=== PATIENT | male | born 2000 | race Caucasian/White ===

== ENCOUNTER 2022-01-06 05:53 | Emergency (ER) | payer SELFPAY ==
[~2022-01-06] VITALS: Ht 170.2 cm; Wt 73.0 kg
[2022-01-06 07:46] VITALS: BP 132/90
[2022-01-06] MEDS: KETOROLAC 30MG/ML VIAL IV STA (07:46)
[2022-01-06] MEDS: MAGNESIUM/ALUMINUM HYDROXIDE/SIMETHICONE 30ML UDC PO STA (07:46)
== END 2022-01-06 08:17 | disposition home or self-care (01) ==
LOC: ER 05:53
DX: T14.8XXA Other injury of unspecified body region, initial encounter (principal); V49.49XA Driver injured in collision with other motor vehicles in traffic accident, initial encounter; Y93.89 Activity, other specified; Y92.89 Other specified places as the place of occurrence of the external cause; Y99.8 Other external cause status; R07.89 Other chest pain
CPT/HCPCS: 71046; 93005; 96374; 99283; J1885